=== PATIENT | male | born 1980 | race Caucasian/White ===

== ENCOUNTER 2022-02-25 08:22 | Observation (INO) ==
[2022-02-25] MEDS ORDERED: Ondansetron 4 MG/2 ML VIAL IVP ONE (09:19)
[2022-02-25] MEDS ORDERED: Morphine Sulfate 2 MG/ML SYRINGE IVP ONE (09:19)
[2022-02-25] MEDS ORDERED: 0.9 % Sodium Chloride 1,000 ML IV ONE (09:19)
[2022-02-25 10:57] LABS: Basophils % 0.3 %; Eosinophils % 0.3 %; Hematocrit 44.8 % (37.5-50.1); Hemoglobin 15.6 g/dL (12.9-16.9); Immature Granulocytes % 0.4 % (0-4); Lymphocytes # 1.3 K/mcL (0.6-4.6); Mean Corpuscular HGB Conc 34.8 g/dL (31.6-35.5); Mean Corpuscular Hemoglobin 30.2 pg (28.0-33.3); Mean Corpuscular Volume 86.7 fL (83.0-100.0); Mean Platelet Volume 8.6 fL (9.4-12.4); Monocytes % 8.2 %; Neutrophils # 9.3 K/mcL (1.6-8.9); Platelet Count 226 K/mcL (140-400); Red Blood Count 5.17 M/mcL (4.19-5.50); Red Cell Distribution Width 12.1 % (11.5-14.5); Segmented Neutrophils % 79.8 %; White Blood Count 11.7 K/mcL (4.3-11.1)
[2022-02-25 11:22] LABS: Albumin 4.6 g/dL (3.5-5.7); Albumin/Globulin Ratio 1.6 (1.1-2.2); Bilirubin,Total 2.2 mg/dL (0.3-1.0); Calcium 9.5 mg/dL (8.6-10.3); Globulin 2.9 g/dL (2.4-3.5); Total Protein 7.5 g/dL (6.4-8.9)
[2022-02-25] MEDS ORDERED: *HR* FentaNYL (PF) 100 MCG/2 ML VIAL IVP ONE (11:39)
[2022-02-25] MEDS ORDERED: MetroNIDAZOLE 500 MG/100 ML 500 MG/100 ML BAG IVPB ONE (11:39)
[2022-02-25] MEDS ORDERED: cefTRIAXone 1,000 MG in 0.9 % Sodium Chloride 10 ML IVP ONE (11:39)
[2022-02-25] MEDS ORDERED: Naloxone 0.4 MG/ML INJ IVP PRN (12:23)
[2022-02-25] MEDS ORDERED: Ketorolac 30 MG/ML VIAL IVP PRN (12:23)
[2022-02-25] MEDS ORDERED: Ringers Solution, Lactated 1,000 ML IVC SCH (12:45)
[2022-02-25] MEDS: Ampicillin/Sulbactam 3,000 MG in 0.9 % Sodium Chloride Mini Bag 100 ML IVPB SCH ×2 (14:38→19:50)
[2022-02-25] MEDS ORDERED: SUMAtriptan succinate 50 MG TABLET PO PRN (15:48)
[2022-02-25] MEDS ORDERED: Acetaminophen IV 1,000 MG/100 ML BAG IVPB ONE (15:54)
[2022-02-25 15:58] VITALS: O2SAT 94
[2022-02-25 19:48] VITALS: BP 110/66; PULSE 82; TEMP 98.6
== END 2022-02-25 23:59 | disposition other institution (70) ==
LOC: EMEROOARM 08:22 → 3ANU 08:22
PROVIDERS: ADMIT Internal Medicine; ATTEND Internal Medicine